=== PATIENT | female | born 1980 | race Hispanic/Latino ===

== ENCOUNTER 2021-01-29 17:29 | Emergency (ER) | payer SELFPAY | END 2021-01-29 19:57 | disposition home or self-care (01) | LOC: CSHERS 17:29 | DX: J02.9 Acute pharyngitis, unspecified (principal); Z87.891 Personal history of nicotine dependence | CPT/HCPCS: 71045 ==

== ENCOUNTER 2021-02-04 12:12 | Emergency (ER) | payer SELFPAY ==
[2021-02-04 13:10] LABS: Hemoglobin 14.4 g/dL (12.0-15.5); Mean Corpuscular Hemoglobin 30.6 pg (27.0-33.0); Mean Platelet Volume 10.4 fl (7.4-10.4); Platelet Count 222 10x3/uL (150-450); RBC Distribution Width 12.8 % (11.5-14.5); White Blood Cell (WBC) Count 6.8 10x3/uL (3.5-10.5)
[2021-02-04] MEDS ORDERED: Ketorolac Tromethamine 30 MG/ML VIAL ONE (13:13)
[2021-02-04] MEDS ORDERED: Dexamethasone 10 MG/ML VIAL ONE (13:13)
[2021-02-04 13:14] LABS: BHCG - Serum Negative (NEGATIVE); Pregs Control Background? CLEAR/WHITE (CLR/WHITE); Pregs Control Bar Appear? YES (CONTROL BAR)
[2021-02-04 13:20] LABS: ALT (SGPT) 25 U/L (8-55); AST (SGOT) 39 U/L (5-34); Albumin 3.9 g/dL (3.5-5.0); Alkaline Phosphatase 60 U/L (40-110); Anion Gap 19 mmol/L (10-20); BUN (Urea Nitrogen) 13 mg/dL (7.0-18.7); Bilirubin, Total 0.3 mg/dL (0.2-1.2); Calc. Creatinine Clearance 0 mL/min (70-130); Calcium 9.2 mg/dL (7.8-10.44); Carbon Dioxide 20 mmol/L (22-29); Chloride 101 mmol/L (98-107); Globulin 3.9 g/dL (2.4-3.5); Glucose 112 mg/dL (70-105); Potassium 3.3 mmol/L (3.5-5.1); Protein, Total 7.8 g/dL (6.0-8.3); Sodium 137 mmol/L (136-145)
[2021-02-04 13:35] LABS: MDiff Complete? YES
[2021-02-04 13:38] LABS: Band 1 % (5-11); Lymphocytes 11 % (21-51); Monocytes 2 % (0-10); Neutrophil 83 % (42-75); Reactive Lymphocytes 3 % (0-10)
[2021-02-04 14:17] LABS: SARS-CoV-2 NAA Rapid Test DETECTED (NotDetected)
== END 2021-02-04 15:37 | disposition home or self-care (01) ==
LOC: CSHERS 12:12
DX: U07.1 COVID-19 (principal); J12.82 Pneumonia due to coronavirus disease 2019; Z87.891 Personal history of nicotine dependence
CPT/HCPCS: 71045; 80053; 83605; 84703; 85025; 93005; 96374; 96375; J1100; J1885; U0002

== ENCOUNTER 2021-04-04 16:48 | Emergency (ER) | payer BC ==
[2021-04-04] MEDS ORDERED: Acetaminophen 500 MG TAB ONE (19:20)
[2021-04-06 01:01] LABS: SARS-CoV-2 PCR by NAA DETECTED (NotDetected)
== END 2021-04-04 19:45 | disposition home or self-care (01) ==
LOC: CSHERS 16:48
DX: U07.1 COVID-19 (principal); S92.412A Displaced fracture of proximal phalanx of left great toe, initial encounter for closed fracture; F17.210 Nicotine dependence, cigarettes, uncomplicated; W22.8XXA Striking against or struck by other objects, initial encounter
CPT/HCPCS: 87804; U0003; U0005

== ENCOUNTER 2021-08-01 20:14 | Emergency (ER) | payer BC | END 2021-08-01 22:33 | disposition home or self-care (01) | LOC: CSHERS 20:14 | DX: M25.531 Pain in right wrist (principal); M79.644 Pain in right finger(s); F17.290 Nicotine dependence, other tobacco product, uncomplicated; F17.210 Nicotine dependence, cigarettes, uncomplicated | CPT/HCPCS: 99283 ==

== ENCOUNTER 2021-08-22 23:45 | Emergency (ER) | payer BC | END 2021-08-23 00:47 | disposition home or self-care (01) | LOC: CSHERS 23:45 | DX: S62.626A Displaced fracture of middle phalanx of right little finger, initial encounter for closed fracture (principal); X58.XXXA Exposure to other specified factors, initial encounter | CPT/HCPCS: 29130 ==